=== PATIENT | male | born 1985 | race African-American/Black ===

== ENCOUNTER → 2021-12-31 14:14 | Outpatient (CLI) | payer OTHER, SELFPAY ==
--- NOTE | ~2021-12-31 | XR_ITS ---
XR chest 2V DATE: 12/31/2021 14:26 INDICATION: Cough, wheezing TECHNIQUE: PA and lateral views COMPARISON: None FINDINGS: Normal heart size. No hilar or mediastinal enlargement. No pulmonary infiltrate or consolid ation, pleural effusion or pulmonary vascular congestion or pneumothorax. IMPRESSION: Negative Reviewed, dictated and finalized at location A. IMPRESSION: Negative
== END ==
PROVIDERS: PCP Emergency Medicine; Visit Provider Emergency Medicine
DX: J20.9 Acute bronchitis, unspecified (principal)
CPT/HCPCS: 71046

== ENCOUNTER 2023-04-21 08:05 | Outpatient (CLI) | payer OTHER, SELFPAY ==
--- NOTE | ~2023-04-21 | CT_ITS ---
EXAMINATION:CT diagnostic chest wo con DATE: 04/21/2023 09:43 INDICATION: Chronic cough. TECHNIQUE: Computed tomography (CT) of the chest was performed without intravenous contrast. Automate d exposure control and iterative reconstruction technique were employed. The dose-length product (DLP ) was 597.38 mGy-cm. COMPARISON: Chest 2 views 12/31/2021 FINDINGS: There is mild scarring at the lung apices. No pleural effusion. The heart size is normal. N o pericardial effusion. There is mild thoracic spondylosis. IMPRESSION: 1. Mild scarring at the lung apices. Reviewed, dictated and finalized at location A.
[2023-04-21] MEDS: METHACHOLINE CHLORIDE 18 ML VIAL.NEB INHALATION (09:15)
--- NOTE | 2023-04-21 15:41 | P.METCHAL_ITS ---
Methacholine Procedure Perform Procedure Performed Methacholine Challenge Methacholine Challenge Methacholine Challenge: This is a methacholine challenge test. The test was performed and interpreted in accordance with the 2017 ERS technical standard, endorsed by the [employer], using the GLI 2012 reference equations. Testing was performed with increasing doses of nebulized methacholine following a quadrupling dosage protocol. The methacholine dose was delivered via the [email or web address] nebulizer using a 1-minutes tidal breathing protocol. The best post-methacholine FEV1 values were used to determine the change from the post diluent FEV1. The delivered dose of methacholine was used to calculate the provocative dose causing a 20% fall in FEV1 (PD 20). Of note, the patient took cetirizine 10 mg on 04/20 at 9:00 a.m.. The patient took albuterol sulfate on 04/20 at 6:00 a.m.. Findings: Baseline FEV1 2.88 L, 75% predicted. Post diluent FEV1 2.74 L Post 1.81 mcg methacholine FEV1 2.88 L, increased 5% Post 7.26 mcg methacholine FEV1 2.72 L, decreased 1% Post 29.03 mcg methacholine FEV1 2.91 L, increased 6% Post 116.1 mcg methacholine FEV1 2.84 L, increased 4% Post 464.4 mcg methacholine FEV1 2.27 L, decreased 17% Post albuterol nebulization FEV1 2.96 L Impression: The PD20 is > 400 mcg which is categorized as normal airway hyperresponsiveness. There are no prior methacholine challenge studies for comparison
== END 2023-04-21 08:06 | disposition home or self-care (01) ==
PROVIDERS: PCP Emergency Medicine; Visit Provider Nurse Practitioner Family
DX: J42 Unspecified chronic bronchitis (principal); R05.3 Chronic cough
CPT/HCPCS: 71250; 94070; J7674

== ENCOUNTER → 2023-08-07 09:18 | Outpatient (CLI) | payer OTHER, SELFPAY ==
--- NOTE | ~2023-08-07 | US_ITS ---
Abdominal Sonogram: Real-time sonographic imaging of the abdomen was performed. Clinical History: Abdominal pain Findings: The liver appears echogenic, with no evidence of mass lesion or bile duct dilatation. Main portal vein demonstrates normal direction of flow. The spleen is normal in size without evidence of focal lesion. The gallbladder is well distended, and appears normal with no evidence of gallstone or wall thickening. The common bile duct measures 5 mm. The visualized pancreas, aorta, and IVC are un remarkable. The right kidney measures 10.3 cm in length and the left kidney measures 10.7 cm. There is no hydronephrosis or renal calculus. The area of focal pain superior to the pancreas, there is a 1.6 x 2.1 x 0.8 cm hyperechoic ovoid circ umscribed mass just deep to the superficial soft tissues. This is most suggestive of lipoma. Impression: 1.6 x 2.1 x 0.8 cm circumscribed hypoechoic oval mass, as above, most suggestive of lipoma. Diffuse fatty infiltration of liver. Reviewed, dictated and finalized at location M. DRAWING CHECKER Impression: 1.6 x 2.1 x 0.8 cm circumscribed hypoechoic oval mass, as above, most suggestiv e of lipoma. Diffuse fatty infiltration of liver.
== END ==
PROVIDERS: PCP Emergency Medicine; Visit Provider Emergency Medicine
DX: R10.84 Generalized abdominal pain (principal); K76.0 Fatty (change of) liver, not elsewhere classified
CPT/HCPCS: 76700